=== PATIENT | male | born 1995 | race Two or more races ===

== ENCOUNTER 2018-03-24 08:50 | Emergency (ER) | payer OTHER ==
[~2018-03-24] VITALS: Ht 177.8 cm; Wt 81.6 kg
[2018-03-24] MEDS ORDERED: ONDANSETRON 4 MG TAB.RAPDIS SL ONE (09:30)
[2018-03-24] MEDS ORDERED: KETOROLAC TROMETHAMINE INJ 30 MG/ML VIAL IM ONE (09:30)
[2018-03-24] MEDS ORDERED: KETOROLAC TROMETHAMINE INJ 30 MG/ML VIAL ONE (09:41)
[2018-03-24] MEDS ORDERED: ONDANSETRON 4 MG TAB.RAPDIS ONE (09:41)
--- NOTE | 2018-03-24 09:57 | NUR ---
PT. VERBALIZED UNDERSTANDING OF AFTERCARE INSTRUCTIONS.Patient discharged to home in stable condition. Written and verbal after care instructions given. Patient verbalizes understanding of instruction.
[2018-03-24 10:03] VITALS: BP 124/69
== END 2018-03-24 10:04 | disposition home or self-care (01) ==
LOC: ER 08:52
DX: N39.0 Urinary tract infection, site not specified (principal); R11.2 Nausea with vomiting, unspecified; F17.200 Nicotine dependence, unspecified, uncomplicated
CPT/HCPCS: A4606; J1885; Q0162; Z7610